=== PATIENT | male | born 1990 | race Caucasian/White ===

== ENCOUNTER 2019-11-07 13:07 | Emergency (ER) | payer SELFPAY ==
[2019-11-07 13:12] VITALS: BP 142/81; PULSE 87; RESP 20; TEMP 36.2; O2SAT 99
--- NOTE | 2019-11-07 15:08 | ED.GENADULT ---
HPI - General Adult General Chief complaint: Skin/Abscess/Foreign Body Stated complaint: Spider Bite Time Seen by Provider: 11/07/19 13:53 Source: patient Mode of arrival: ambulatory Limitations: no limitations History of Present Illness HPI narrative: Patient is a 29-year-old male who presents with bug bite to the left forefoot noting mild aching pain patient partially denies injury or trauma notes that he was likely bit by a brown with glucose as he has this problem at his house patient noted itching and irritation notes that the red area is gone down significantly since being bit this morning. Related Data Home Medications Medication Instructions Recorded Confirmed duloxetine [Cymbalta] 30 mg PO DAILY 11/07/19 Allergies Allergy/AdvReac Type Severity Reaction Status Date / Time No Known Allergies Allergy Verified 11/07/19 13:17 Review of Systems Review of Systems: All systems reviewed & are unremarkable except as noted in HPI and below PMFSH Social History Social History Gender identity (if verbalized by the patient): Male Exam Narrative: Exam Narrative: GENERAL: Well-appearing, well-nourished, and in no acute distress. HEAD: Normocephalic, atraumatic. EYES: PERRLA and EOMI. ENT: Nares clear, no rhinorrhea or epistaxis. Mucous membranes moist. EXTREMITIES: Normal range of motion. No edema. SKIN: Warm, dry, no rash. Small 3 mm lesion of the left forefoot no erythema no cellulitic changes no ulceration no lymphangitic streaking NEURO: No focal deficits. Alert and oriented x3. Cranial nerves II through XII grossly intact PSYCH: Normal mood and affect. Course Course Emergency Course: Patient in the room in no distress aware of case findings treatment plan and diagnosis Vital Signs Vital signs: Vital Signs Temperature 97.1 F L 11/07/19 13:12 Pulse Rate 87 11/07/19 13:12 Respiratory Rate 11/07/19 13:12 Blood Pressure 142/81 H 11/07/19 13:12 Pulse Oximetry 99 11/07/19 13:12 Temperature 97.1 F L 11/07/19 13:12 Pulse Rate 87 11/07/19 13:12 Respiratory Rate 11/07/19 13:12 Blood Pressure 142/81 H 11/07/19 13:12 Pulse Oximetry 99 11/07/19 13:12 Medical Decision Making MDM Narrative Medical decision making narrative: Patients injury or pain is consistent with musculoskeletal etiology. No signs of neurological or vascular compromise on exam. Compartments and tisues are soft without signs of compartment syndrome. Pain is felt appropriate for further evaluation on an outpatient basis. Provided with reasons to return no signs of infection Vital Signs Vital Signs: Vital Signs Temperature 97.1 F L 11/07/19 13:12 Pulse Rate 87 11/07/19 13:12 Respiratory Rate 11/07/19 13:12 Blood Pressure 142/81 H 11/07/19 13:12 Pulse Oximetry 99 11/07/19 13:12 Temperature 97.1 F L 11/07/19 13:12 Pulse Rate 87 11/07/19 13:12 Respiratory Rate 11/07/19 13:12 Blood Pressure 142/81 H 11/07/19 13:12 Pulse Oximetry 99 11/07/19 13:12 Discharge Plan Discharge Clinical Impression: Insect bite (nonvenomous), left foot, initial encounter Patient Disposition: Home, Self-Care Condition: Stable Instructions: Antibiotic Form, Brown Recluse Spider Bite (ED) Additional Instructions: Follow up with primary care in the next 2-3 days for re-evaluation return if symptoms worsen or concerns, any increase in redness swelling pain or fever over 100.5 Follow patient education sheets Clean wound with mild soapy water. Apply antibiotic ointment and clean dressing at least three times daily Prescriptions: New loratadine [Claritin] 10 mg tablet 10 mg PO DAILY PRN (Reason: allergy symptoms) Qty: 14 RF: 0 famotidine [Pepcid] 20 mg tablet 20 mg PO BID Qty: 14 RF: 0 No Action duloxetine [Cymbalta] 30 mg Capsule,Delayed Release(Dr/Ec) 30 mg PO DAILY RF: 0 Follow-up/Referrals: Carol
[2019-11-07 15:42] VITALS: BP 141/88; PULSE 74; RESP 18; O2SAT 96
== END 2019-11-07 15:44 | disposition home or self-care (01) ==
PROVIDERS: Emergency Provider Emergency Medicine; PCP Internal Medicine
DX: S90.862A Insect bite (nonvenomous), left foot, initial encounter (principal); W57.XXXA Bitten or stung by nonvenomous insect and other nonvenomous arthropods, initial encounter
CPT/HCPCS: 99283

== ENCOUNTER 2021-02-27 00:38 | Emergency (ER) | payer OTHER, SELFPAY ==
[2021-02-27 00:44] VITALS: BP 134/87; PULSE 110; RESP 18; TEMP 36.1; O2SAT 99
[2021-02-27 00:50] LABS: Glucose Point of Care 309 mg/dl (65-105)
--- NOTE | 2021-02-27 01:37 | ED.EAR ---
HPI - Ear Problem General Chief complaint: Ear Stated complaint: left ear pain Time Seen by Provider: 02/27/21 01:14 History of Present Illness HPI Narrative: Patient is a 30-year-old male who presents ER with left-sided ear pain. Increasing over the evening. Cannot hear out of his ear. No drainage. No fevers or chills or sweats. Reports had sinus congestion couple weeks ago but does not have any currently. Related Data Home Medications Medication Instructions Recorded Confirmed duloxetine [Cymbalta] 30 mg PO DAILY 11/07/19 Allergies Allergy/AdvReac Type Severity Reaction Status Date / Time No Known Allergies Allergy Verified 02/27/21 00:53 Review of Systems Constitutional: Constitutional: Denies chills, Denies fever(s) and Denies weakness ENT: Denies nasal congestion and Denies sore throat Comments: Left ear pain and fullness. [facility] Past Medical History Medical History (Updated 02/27/21 @ 02:00 by Steve Gomez MD) Type 2 diabetes mellitus Surgical History Surgical History (Updated 02/27/21 @ 02:00 by Steve Gomez MD) No pertinent past surgical history Social History Social History Gender identity (if verbalized by the patient): Male Exam Narrative: GENERAL: Well-appearing, well-nourished, and in no acute distress. HEAD: Normocephalic, atraumatic. ENT: Mucous membranes moist. Left ear otitis with bulging erythematous TM. Right TM normal. No tenderness with manipulation left ear. EXTREMITIES: Normal range of motion. No edema. NEURO: Alert and oriented x3. PSYCH: Normal mood and affect. Course Course Emergency Course: Patient reports he is out of his Metformin. He is unsure what his dosages. We will give him 500 twice a day and have him follow-up with his PCP. Pam[place]o and Augmentin for ear infection. Vital Signs Vital signs: Vital Signs Temperature 97.0 F L 02/27/21 00:44 Pulse Rate 110 H 02/27/21 00:44 Respiratory Rate 18 02/27/21 00:44 Blood Pressure 134/87 02/27/21 00:44 Pulse Oximetry 99 02/27/21 00:44 Temperature 97.0 F L 02/27/21 00:44 Pulse Rate 110 H 11/01/21 00:44 Respiratory Rate 18 02/27/21 00:44 Blood Pressure 134/87 02/27/21 00:44 Pulse Oximetry 99 02/27/21 00:44 Medical Decision Making Vital Signs Vital Signs: Vital Signs Temperature 97.0 F L 02/27/21 00:44 Pulse Rate 110 H 02/27/21 00:44 Respiratory Rate 18 02/27/21 00:44 Blood Pressure 134/87 02/27/21 00:44 Pulse Oximetry 99 02/27/21 00:44 Temperature 97.0 F L 02/27/21 00:44 Pulse Rate 110 H 02/27/21 00:44 Respiratory Rate 18 02/27/21 00:44 Blood Pressure 134/87 02/27/21 00:44 Pulse Oximetry 99 02/27/21 00:44 Lab Data Labs: Lab Results 02/27/21 Range/Units 00:48 POC Capillary Glucose 309 H (65-105) mg/dl Discharge Plan Discharge Clinical Impression: Otitis media Patient Disposition: Home, Self-Care Condition: Stable Instructions: Antibiotic Form, Ear Infection (ED) Additional Instructions: Return the ER if you have fever of 100.4 ?F, worsening pain, you cannot keep down food or water, you have additional concerns. Prescriptions: New hydrocodone-acetaminophen 5-325 mg tablet 1 tablet PO Q6H PRN (Reason: pain) Qty: 10 RF: 0 amoxicillin-pot clavulanate [Augmentin] 875-125 mg tablet 1 tablet PO Q12H Qty: 20 RF: 0 metformin 500 mg tablet 500 mg PO BID Qty: 30 RF: 0 No Action duloxetine [Cymbalta] 30 mg Capsule,Delayed Release(Dr/Ec) 30 mg PO DAILY RF: 0 loratadine [Claritin] 10 mg tablet 10 mg PO DAILY PRN (Reason: allergy symptoms) Qty: 14 RF: 0 famotidine [Pepcid] 20 mg tablet 20 mg PO BID Qty: 14 RF: 0 Follow-up/Referrals: PHYSICIAN NOT ON STAFF,NONSTAFF [Primary Care Provider] - 1 Week
[2021-02-27 02:01] VITALS: BP 150/96; PULSE 99; RESP 18; O2SAT 98
== END 2021-02-27 02:02 | disposition home or self-care (01) ==
PROVIDERS: Emergency Provider Emergency Medicine
DX: H66.92 Otitis media, unspecified, left ear (principal); E11.9 Type 2 diabetes mellitus without complications; Z79.84 Long term (current) use of oral hypoglycemic drugs
CPT/HCPCS: 82948; 99283

== ENCOUNTER 2022-08-21 16:28 | Outpatient (CLI) | payer OTHER, SELFPAY ==
--- NOTE | ~2022-08-21 | MR_ITS ---
EXAMINATION: MR foot LT wo con DATE: 08/21/2022 17:25 INDICATION: Left foot pain. TECHNIQUE: Magnetic resonance imaging (MRI) of the left foot was performed without intravenous contra st. COMPARISON: None FINDINGS: There is a skin marker lateral to fifth metatarsal. Bone alignment is normal. There is a no ndisplaced stress fracture of proximal diaphysis of fourth metatarsal with surrounding edema-like mar row signal intensity. There is mild osteoarthritis of first metatarsophalangeal joint. Lisfranc ligam ent is normal. The flexor and extensor tendons are normal. The muscle bellies are normal. IMPRESSION: 1. Nondisplaced stress fracture of diaphysis of fourth metatarsal. Reviewed, dictated and finalized at location A.
== END 2022-08-21 16:29 | disposition home or self-care (01) ==
PROVIDERS: PCP Family Medicine
DX: M84.375A Stress fracture, left foot, initial encounter for fracture (principal); T14.90XA Injury, unspecified, initial encounter
CPT/HCPCS: 73718

== ENCOUNTER 2022-10-12 12:36 | Outpatient (CLI) | payer OTHER, SELFPAY ==
--- NOTE | ~2022-10-12 | US_ITS ---
US scrotum doppler INDICATION: Testicular mass. TECHNIQUE: Testicular sonogram utilizing grayscale and color Doppler FINDINGS: The testes are normal in size and appearance. No focal lesions are seen. The right testes measures 4 x 2.9 x 2.1 cm centimeters, and the left testis measures 2.9 x 2.8 x 2.1 cm cm. There is n ormal vascular flow to both testes. The right epididymal cysts, largest measuring 2.6 cm. No evidence for hydrocele or varicocele. IMPRESSION: 1. Right epididymal cysts, largest measuring 2.6 cm. Reviewed, dictated and finalized at location []
== END 2022-10-12 12:37 | disposition home or self-care (01) ==
PROVIDERS: PCP Family Medicine; Visit Provider Family Medicine
DX: N50.89 Other specified disorders of the male genital organs (principal); N50.3 Cyst of epididymis
CPT/HCPCS: 76870; 93976

== ENCOUNTER 2024-01-29 09:12 | Emergency (ER) | payer SELFPAY ==
[2024-01-29 09:25] VITALS: BP 127/73; PULSE 77; RESP 16; TEMP 36.8; O2SAT 98
--- NOTE | 2024-01-29 10:06 | ED.LOWEXIN ---
HPI - Extremity Injury (Lower) General Chief Complaint: Extremity Injury, Lower Stated Complaint: Left ankle injury Time Seen by Provider: 01/29/24 10:06 Source: patient Mode of arrival: ambulatory Limitations: no limitations History of Present Illness HPI Narrative: 33-year-old male presents with complaint of pain to lateral aspect of left ankle for the past few days. Denies injury. 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 pain worse when ambulatory. No pain at rest. patient feels like he may be turning out at his ankle which could be making pain worse. Bought an ankle support but not helping. does not have a primary care physician at this time. All systems reviewed and negative except as noted above. Related Data Home Medications Medication Instructions Recorded Confirmed tirzepatide 7.5 mg/0.5 mL 7.5 mg subcut WEEKLY 01/29/24 01/29/24 subcutaneous pen injector (Mounjaro) Allergies Allergy/AdvReac Type Severity Reaction Status Date / Time No Known Allergies Allergy Verified 01/29/24 09:32 Review of Systems Review of Systems: CONSTITUTIONAL: Denies fever, chills, or sweats. EYES: Denies visual changes, redness, or discharge. ENT: Denies rhinorrhea, congestion, sore throat, or otalgia. CARDIOVASCULAR: Denies chest pain, palpitations, or edema. RESPIRATORY: Denies cough or dyspnea. GASTROINTESTINAL: Denies abdominal pain, nausea, vomiting, or diarrhea. GENITOURINARY: Denies dysuria or hematuria. SKIN: Denies rash or itching. MUSCULOSKELETAL: Reports pain to left ankle NEUROLOGIC: Denies headache, numbness, or weakness. PSYCHIATRIC: Denies anxiety or depression. All other systems reviewed are negative, except as documented in HPI. [facility] Past Medical History Medical History (Updated 01/29/24 @ 10:19 by Jenifer Hernandez NP) Type 2 diabetes mellitus Surgical History Surgical History (Updated 02/27/21 @ 02:00 by Steve Gomez MD) No pertinent past surgical history Social History Social History Gender identity (if verbalized by the patient): Male Comments At time of signature, agree with nursing past medical, surgical, social and family history. There is no relevant family history pertinent to the presenting complaint. Exam Narrative: GENERAL: This is a well-nourished, well-developed patient, in no apparent distress. HEAD: normocephalic, atraumatic. EYES: PERRL. Sclera clear/white. Vision is grossly intact. EARS: External ears normal NOSE: External nose normal NECK: Neck supple, non-tender without lymphadenopathy, masses or thyromegaly. CARDIOVASCULAR: Regular rate and rhythm without murmurs, gallops, or rubs. RESPIRATORY: Clear to auscultation. Breath sounds equal bilaterally. No wheezes, rales, or rhonchi. SKIN: warm, Dry, intact with no suspicious lesions or rash, good texture and turgor. NEURO: awake, alert, and oriented to person, place and time. There were no obvious focal neurologic abnormalities. EXTREMITIES: no tenderness on exam of L ankle. normal ROM. no swelling or deformity. unable to reproduce pain while at [facility]. Course Course Level of Care: [facility] Visit Vital Signs Vital signs: Vital Signs Temperature 36.8 C 01/29/24 09:25 Pulse Rate 77 01/29/24 09:25 Respiratory Rate 16 01/29/24 09:25 Blood Pressure 127/73 01/29/24 09:25 Pulse Oximetry 98 01/29/24 09:25 Oxygen Delivery Room Air 01/29/24 09:25 Temperature 36.8 C 01/29/24 09:25 Pulse Rate 77 01/29/24 09:25 Respiratory Rate 16 01/29/24 09:25 Blood Pressure 127/73 01/29/24 09:25 Pulse Oximetry 98 01/29/24 09:25 Oxygen Delivery Room Air 01/29/24 09:25 reviewed MDM - Extremity Injury (Lower) MDM Narrative Medical decision making narrative: x-ray imaging not indicated. Patient's pain most likely related to tendinitis. Recomm
== END 2024-01-29 10:20 | disposition home or self-care (01) ==
PROVIDERS: Emergency Provider Nurse Practitioner Family
DX: M77.52 Other enthesopathy of left foot and ankle (principal); E11.9 Type 2 diabetes mellitus without complications
CPT/HCPCS: 99212; G0463